=== PATIENT | male | born 1960 | race Caucasian/White ===

== ENCOUNTER 2022-10-07 14:11 | Emergency (ER) | payer MEDICARE ==
[~2022-10-07 14:11] MED LIST: AMOX/K CLAV875 M1 PO; ANTI-FUNGAL12 EX; ATORVASTATIN CA20 MG PO; CYMBALTA60 MG PO; FREESTYLE LIBRE1 KI1 SC; KLOR-CON M2020 MEQ PO; LASIX 40 MG TAB40 MG PO; MORPHINE SUL30 M3 PO; NITROSTAT0.4 MG SL; NOVOLIN N100 UNIT SC; OMEPRAZOLE DR40 MG PO; PEPCID20 MG PO; TEMAZEPAM30 MG PO; TERBINAFINE250 M1 PO; WELLBUTRIN XL150 MG PO; XARELTO20 MG PO
== END 2022-10-07 14:41 | disposition left against medical advice (07) ==
LOC: ED 14:11 → LWOBS 14:32
DX: Z53.21 Procedure and treatment not carried out due to patient leaving prior to being seen by health care provider (principal)

== ENCOUNTER 2024-10-16 16:28 | Observation (INO) | payer MEDICARE ==
[~2024-10-16] VITALS: Ht 175.3 cm; Wt 139.2 kg
[2024-10-16] VITALS (12 sets, daily range): BP systolic 132–194; BP diastolic 62–100
[2024-10-16] MEDS ORDERED: ASPIRIN 81 MG/TAB PO ONE (16:40)
--- NOTE | 2024-10-16 16:45 | NUR ---
PT TO ROOM WITH STEADY GAIT; REFUSED WC
--- NOTE | 2024-10-16 18:30 | NUR ---
PT STATUS UNCHANGED FROM ASSESSMENT. AWAITING CT.
[2024-10-16 18:43] LABS: BASO% 0.9 % (0-3); EOS% 2.5 % (0-8); HEMATOCRIT 39.1 % (39.0-50.0); HEMOGLOBIN 12.7 g/dl (14.0-18.0); IMMATURE GRANULOCYTES 0.1 % (0.0-5.0); LYMPH% 33.2 % (15-41); MEAN CELL VOLUME 94.2 fL CALC (80.0-100.0); MEAN CORPUSCULAR HGB 30.6 pG CALC (26.0-32.0); MEAN CORPUSCULAR HGB CONC 32.5 g/dL CAL (32.0-36.0); MONO% 9.6 % (2-13); NEUT# 5.34 thou/uL (1.82-7.42); NEUT% 53.7 % (42-76); RED BLOOD COUNT 4.15 mill/uL (4.70-6.10); RED CELL DISTRI WIDTH 14.6 % (11.5-15.5)
[2024-10-16 18:56] LABS: ALBUMIN 4.3 g/dL (3.2-5.0); ALKALINE PHOSPHATASE 74 u/l (38-126); ANION GAP 13 (6-22 (CALC)); BILIRUBIN, TOTAL 0.6 mg/dL (0.2-1.3); BUN 9 mg/dL (8-23); BUN/CREATININE RATIO 12 (12-20 (CALC)); CARBON DIOXIDE 25 mmol/l (22-30); CHLORIDE 106 mmol/l (95-108); CREATININE 0.8 mg/dL (0.7-1.3); ESTIMATED GFR 99 ML/MIN (>=90 (CALC)); POTASSIUM 3.8 mmol/l (3.5-5.1); SGOT/AST 41 u/l (19-48); SODIUM 140 mmol/l (137-146); TOTAL PROTEIN 7.3 g/dL (6.3-8.2)
--- NOTE | 2024-10-16 19:12 | NUR ---
REPORT RECEIVED FROM Megan LOMAX RN AND CARE OF PT ASSUMED AT THIS TIME
--- NOTE | 2024-10-16 19:56 | NUR ---
PT RETURNED FROM CT. RESTING IN BED. RESP EVEN AND UNLABORED. NO DISTRESS NOTED. INFORMED PT OF PLAN OF CARE AND CONTINUED WAIT TIME AND HE VERBALIZED UNDERSTANDING. CALL LIGHT IN REACH.
--- NOTE | 2024-10-16 20:48 | NUR ---
LABD REDRAWN PER MD ORDERS. PT CONTINUES RESTING W/ NO COMPLAINTS OF PAIN AT THIS TIME. LIGHTS DIMMED FOR COMFORT
[2024-10-16] MEDS ORDERED: ASPIRIN 325 MG/TAB PO ONE (21:45)
[2024-10-16] MEDS ORDERED: ACETAMINOPHEN 500 MG TAB PO ONE (21:45)
[2024-10-16] MEDS ORDERED: MAGNESIUM HYDROXIDE 30 ML UDC PO PRN (21:50)
[2024-10-16] MEDS ORDERED: ACETAMINOPHEN 325 MG/TAB PO PRN (21:50)
[2024-10-16] MEDS ORDERED: Pantoprazole Sodium 40 MG VIAL (Protonix) IV SCH (21:50)
--- NOTE | 2024-10-16 22:07 | NUR ---
PT MEDICATED FOR STATED 5/10 PERSAUD. RESTING IN BED EATING DINNER TRAY. NO DISTRESS NOTED
--- NOTE | 2024-10-16 22:19 | NUR ---
REPORT CALLED TO Dimitrios KRISHNAMURTHY RN
--- NOTE | 2024-10-16 22:22 | NUR ---
PT TRANSPORTED TO DC VIA WHEELCHAIR IN STABLE CONDITION
--- NOTE | 2024-10-16 22:27 | NUR ---
PATIENT ADMITTED TO [facility] VIA WC. AMBULATED SELF TO STANDING SCALE THEN BED WITHOUT DIFFICULTY. ALERT AND ORIENTED. ABLE TO MAKE NEEDS KNOWN. ASSESSMENT COMPLETE. NO DISTRESS NOTED. NON PRODUCTIVE COUGH PRESENT. NO COMPLAINTS OF CHEST PAIN AT THIS TIME. EDEMA +2 OBSERVED TO BLE. ENCOURAGED TO ELEVATE. TRIPLE LUMEN IJ TO RIGHT SIDE OF NECK. PATIENT ORIENTED TO ROOM, CALL SINCLAIR AND SURROUNDINGS. PATIENT ON TELE BOX #6. FRESH WATER AND A JUICE AT THE BEDSIDE. CALL SINCLAIR IN REACH. BED IN LOW POSITION FOR SAFETY.
[2024-10-17 02:49] LABS: EOS% 3.7 % (0-8); HEMATOCRIT 35.6 % (39.0-50.0); HEMOGLOBIN 11.8 g/dl (14.0-18.0); IMMATURE GRANULOCYTES 0.5 % (0.0-5.0); LYMPH% 40.3 % (15-41); MEAN CELL VOLUME 93.7 fL CALC (80.0-100.0); MEAN CORPUSCULAR HGB 31.1 pG CALC (26.0-32.0); MEAN CORPUSCULAR HGB CONC 33.1 g/dL CAL (32.0-36.0); MONO% 10.8 % (2-13); NEUT# 3.34 thou/uL (1.82-7.42); NEUT% 43.7 % (42-76); RED BLOOD COUNT 3.8 mill/uL (4.70-6.10); RED CELL DISTRI WIDTH 14.6 % (11.5-15.5)
--- NOTE | 2024-10-17 04:00 | NUR ---
PATIENT REMAINS RESTING IN BED. NO COMPLAINTS OF CHEST PAIN. DENIES NEEDING ANYTHING AT THIS TIME. BED REMAINS IN LOW POSITION. CALL SINCLAIR AND BELONGINGS IN REACH.
[2024-10-17 05:19] VITALS: BP 164/67
[2024-10-17 05:37] VITALS: BP 164/67
[2024-10-17 06:37] VITALS: BP 151/64
[2024-10-17] MEDS ORDERED: INSULIN LISPRO 100 UNITS/ML ML SC SCH (07:00)
[2024-10-17 07:58] LABS: ALBUMIN 3.7 g/dL (3.2-5.0); BILIRUBIN, TOTAL 0.7 mg/dL (0.2-1.3); CHOLESTEROL HDL RATIO 6.7 (<4.4 (CALC)); CREATININE 0.7 mg/dL (0.7-1.3); MAGNESIUM 1.8 mg/dL (1.6-2.3); POTASSIUM 3.7 mmol/l (3.5-5.1); TOTAL PROTEIN 6.4 g/dL (6.3-8.2)
[2024-10-17] MEDS ORDERED: ASPIRIN EC 81 MG/TAB PO SCH (09:00)
[2024-10-17] MEDS ORDERED: LISINOPRIL 10 MG/TAB PO SCH (10:30)
[2024-10-17] MEDS ORDERED: INSULIN GLARGINE 100 UNITS/ML SC SCH (10:30)
[2024-10-17] MEDS ORDERED: METOPROLOL SUCCINATE 25 MG/TAB-TOPROL XL PO SCH (10:30)
[2024-10-17 15:56] VITALS: BP 139/60
--- NOTE | 2024-10-17 18:03 | NUR ---
patient decided to leave AMA discussed risks with patient including and up to . Patient alert and oriented times three. md notified. patient refused wheelchair and ambulated out of building with stabe gait
[2024-10-17] MEDS ORDERED: ATORVASTATIN CALCIUM 40 MG/TAB PO SCH (21:00)
[2024-10-17] MEDS ORDERED: ENOXAPARIN SODIUM 40 MG/0.4 ML SYR SC SCH (21:00)
== END 2024-10-17 18:07 | disposition left against medical advice (07) ==
LOC: ED 16:28 → ED-I 21:31 → ED 21:43 → MS2 21:44
PROVIDERS: Family Medicine; Nurse Practitioner Family; ADMIT Internal Medicine; ATTEND Internal Medicine
DX: R07.89 Other chest pain (principal); I11.0 Hypertensive heart disease with heart failure; I50.9 Heart failure, unspecified; E11.9 Type 2 diabetes mellitus without complications; I25.10 Atherosclerotic heart disease of native coronary artery without angina pectoris; E78.5 Hyperlipidemia, unspecified; E66.01 Morbid (severe) obesity due to excess calories; I25.2 Old myocardial infarction; Z86.73 Personal history of transient ischemic attack (TIA), and cerebral infarction without residual deficits; Z79.4 Long term (current) use of insulin; Z95.5 Presence of coronary angioplasty implant and graft; Z95.0 Presence of cardiac pacemaker; Z20.822 Contact with and (suspected) exposure to COVID-19; Z91.199 Patient's noncompliance with other medical treatment and regimen due to unspecified reason
CPT/HCPCS: G0378; J1815; J2470